=== PATIENT | female | born 1935 ===

== ENCOUNTER 2018-01-28 17:22 | Emergency (ER) | payer MEDICARE ==
--- NOTE | 2018-01-28 17:53 | UC ---
Skin Complaint HPI - HPI Summary HPI Summary: While opening window today, part of blind caught her left forearm, causing a flap laceration. Tetanus is not up to date and she would like to have a booster today. - History of Current Complaint Time Seen by Provider: 01/28/18 17:46 Stated Complaint: SKIN COMPLAINT Hx Obtained From: Patient, Family/Stable Manager - here with her . Onset/Duration: Sudden Onset Skin Exposure Onset/Duration: Hours Ago - about 6 hours ago. Onset Severity: Mild Current Severity: Mild Aggravating Factor(s): Touch Alleviating Factor(s): Other - light pressure bandage. - Allergy/Home Medications Allergies/Adverse Reactions: Allergies Allergy/AdvReac Type Severity Reaction Status Date / Time acetaminophen Allergy Unknown Verified 01/28/18 17:49 [From Darvocet-N] Reaction Details ciprofloxacin Allergy Unknown Verified 01/28/18 17:49 Reaction Details hydrocodone Allergy Unknown Verified 01/28/18 17:49 Reaction Details hydromorphone [From Dilaudid] Allergy Unknown Verified 01/28/18 17:49 Reaction Details oxycodone Allergy Unknown Verified 01/28/18 17:49 Reaction Details propoxyphene Allergy Unknown Verified 01/28/18 17:49 [From Darvocet-N] Reaction Details tamoxifen Allergy Unknown Verified 01/28/18 17:49 Reaction Details Home Medications: Home Medications Aspirin TAB* [Aspirin 325 MG TAB*] 325 mg PO DAILY 01/28/18 [History Confirmed 01/28/18] Atorvastatin* [Lipitor*] 10 mg PO QPM 01/28/18 [History Confirmed 01/28/18] Cholecalciferol TAB* [Vitamin D TAB*] 2,000 units PO DAILY 01/28/18 [History Confirmed 01/28/18] Oxybutynin Chloride [Ditropan Xl] 5 mg PO DAILY 01/28/18 [History Confirmed ] Sertraline* [Zoloft*] 25 mg PO BEDTIME 01/28/18 [History Confirmed 01/28/18] Sulindac (NF) [[place] (NF)] 200 mg PO SEE INSTRUCTIONS 01/28/18 [History Confirmed 01/28/18] Review of Systems Constitutional: Negative Skin: Other - hx of skin cancer, scheduled for excision of skin cancer from her nose with Dr. Nunn at the end of January. Eyes: Negative ENT: Negative Respiratory: Negative Cardiovascular: Negative Gastrointestinal: Negative Genitourinary: Negative Motor: Negative Neurovascular: Negative Musculoskeletal: Negative Neurological: Negative Psychological: Negative All Other Systems Reviewed And Are Negative: Yes PMH/Surg Hx/FS Hx/Imm Hx Previously Healthy: Yes Endocrine History: Dyslipidemia Cancer History: Breast Cancer, Other Other Cancer History: melanoma - Family History Known Family History: Positive: Other - not contributory to present visit. - Social History Occupation: Retired Lives: With Family Alcohol Use: None Physical Exam Triage Information Reviewed: Yes Appearance: Well-Appearing - elderly female, a little fragile. Respiratory: Positive: Lungs clear, Normal breath sounds Cardiovascular: Positive: RRR, No Murmur Skin Exam: Other - flap laceration left distal forearm dorsal surface. Laceration Repair - Laceration Repair 1 Description: Irregular - flap laceration left distal forearm Laceration Size After Repair: Length (cm) - 2.5 x 2.5 cm Modified For Repair: No Cleansing Completed Via Routine Prep: Yes Closure Material: SteriStrips - applied steristrips after flap approximated to margins of wound. Course/Dx - Course Course Of Treatment: steristrips to flap laceration. - Differential Diagnoses - Skin Complaint Differential Diagnoses: Other - laceration - Diagnoses Provider Diagnoses: flap laceration distal left forearm Discharge - Sign-Out/Discharge Documenting (check all that apply): Discharge/Admit/Transfer - Discharge Plan Condition: Stable Disposition: HOME Patient Education Materials: Diphtheria/Pertussis/Tetanus Vaccine (By injection ), Steristrips (ED) Referrals: Fly Carvajal DO [Primary Care Provider] - Additional Instructions: You have received a tetanus booster today. Peel away the steristrips as they curl up, ensuring that you peel from the wirst towards the hand. - Billing Disposition and Condition Condition: STABLE Disposition: Home
[2018-01-28 17:58] VITALS: BP 140/79
[2018-01-28] MEDS ORDERED: Tetan/Diph/Pertus SYR(Tdap)* 0.5 ML SYR(BOOSTRIX) use SYR IM ONE (18:07)
== END 2018-01-28 18:41 | disposition home or self-care (01) ==
LOC: UCCORT 17:22
DX: S51.812A Laceration without foreign body of left forearm, initial encounter (principal); W26.8XXA Contact with other sharp object(s), not elsewhere classified, initial encounter; Y93.89 Activity, other specified; Y92.009 Unspecified place in unspecified non-institutional (private) residence as the place of occurrence of the external cause; Z88.6 Allergy status to analgesic agent; Z88.1 Allergy status to other antibiotic agents; Z88.8 Allergy status to other drugs, medicaments and biological substances; Z85.3 Personal history of malignant neoplasm of breast
CPT/HCPCS: 90471; 90715; 96372; 99211; G0463

== ENCOUNTER → 2018-03-02 08:04 | Day surgery (SDC) | payer MEDICARE ==
[~2018-03-02 08:04] MED LIST: Acetaminophen TAB* 325 MG PO PRN; Buffered Lidocaine 0.9% SYRIN* 5 ML/SYR SYRINGE INTRADERM ONE; Bupivacaine 0.25% SDV PF* 10 ML VIAL INJ ONE; Dexamethasone IV* 4 MG/ML 1 ML (4 MG) IV SLOW PU ONE; Dexamethasone IV* 4 MG/ML 1 ML (4 MG) ONE; EPHEDrine (Pressors)* 50 MG/ML VIAL ONE; Famotidine IV* 10 MG/ML 2 ML (20 mg) IV ONE; Famotidine IV* 10 MG/ML 2 ML (20 mg) ONE; Lidocain 1% EPI 1:100,000 * 30 ML MDV ONE; Lidocaine 2% PF * 5 ML VIAL ONE; Midazolam* 1 MG/ML 2 ML VIAL (2 MG) ONE; Mineral Oil Sterile, TOPICAL* 25 ML BTL ONE; Naloxone* 0.4 MG/ML 1 ML VIAL IV PRN; Ondansetron INJ* 2 MG/ML VIAL IV PRN; Propofol* 10 MG/ML 20 ML BTL IV PUSH ONE; ceFAZolin 2 GM PREMIX (*) 2 GM/50 ML BAG IVPB ONE; fentaNYL* 50 MCG/ML 2 ML VIAL (100 MCG VIAL) IV PRN; fentaNYL* 50 MCG/ML 2 ML VIAL (100 MCG VIAL) ONE
[2018-03-02 13:17] VITALS: BP 121/70
== END | disposition home or self-care (01) ==
LOC: OR 08:04
PROVIDERS: ATTEND Plastic Surgery
DX: C44.311 Basal cell carcinoma of skin of nose (principal); M81.0 Age-related osteoporosis without current pathological fracture; I25.2 Old myocardial infarction; E78.5 Hyperlipidemia, unspecified; I50.9 Heart failure, unspecified; Z85.3 Personal history of malignant neoplasm of breast; I25.10 Atherosclerotic heart disease of native coronary artery without angina pectoris; R06.00 Dyspnea, unspecified; R94.31 Abnormal electrocardiogram [ECG] [EKG]; I08.1 Rheumatic disorders of both mitral and tricuspid valves; I44.7 Left bundle-branch block, unspecified; I11.0 Hypertensive heart disease with heart failure
CPT/HCPCS: 88305; 88331; 88332; A9270-GY; J0690; J1100; J2250; J2704; J3010; J3490